=== PATIENT | female | born 1965 | race Caucasian/White ===

== ENCOUNTER 2022-08-12 06:04 | Day surgery (SDC) | payer BC ==
[2022-08-11 08:59] VITALS: BMI 34.2
[2022-08-11 11:26] LABS: Hemoglobin 13.8 g/dL (12.0-15.5); Mean Corpuscular HGB CONC 32.8 g/dL (32.0-36.0); Mean Corpuscular Hemoglobin 27.8 pg (27.0-33.0); Mean Corpuscular Volume 84.9 fl (81.6-98.3); Platelet Count 229 10x3/uL (150-450); RBC Distribution Width 12.6 % (11.5-14.5); Red Blood Cell (RBC) Count 4.96 10x6/uL (3.90-5.03); White Blood Cell (WBC) Count 6.5 10x3/uL (3.5-10.5)
[2022-08-12] MEDS ORDERED: Gabapentin 300 MG CAP ONE (06:15)
[2022-08-12] MEDS ORDERED: CeleCOXIB 100 MG CAP ONE (06:16)
[2022-08-12] MEDS ORDERED: Famotidine/PF 20 mg/2ml Vial ONE (06:16)
[2022-08-12] MEDS ORDERED: Lidocaine 1% w/Epinephrine 1:200K 30 ML VIAL ONE (06:54)
[2022-08-12] MEDS ORDERED: Midazolam HCl 2 mg/2 ml Vial ONE (07:11)
[2022-08-12] MEDS ORDERED: Fentanyl 100 MCG/2 ML VIAL ONE (07:36)
[2022-08-12] MEDS ORDERED: Dexamethasone 4 mg/ml Vial ONE (07:39)
[2022-08-12] MEDS ORDERED: Rocuronium Bromide 10 MG/ML (10ML VIAL) ONE (07:39)
[2022-08-12] MEDS ORDERED: Lidocaine 1% PF 5 ML VIAL ONE (07:39)
[2022-08-12] MEDS ORDERED: Glycopyrrolate 0.2 MG/ML 5 ML SYRINGE ONE (07:39)
[2022-08-12] MEDS ORDERED: Hydrocortisone Sod Succ/PF 100 mg/2 ml Vial ONE (07:40)
[2022-08-12] MEDS ORDERED: Ondansetron PF 4 MG/2 ML Vial ONE (07:40)
[2022-08-12] MEDS ORDERED: EPINEPHrine 1 MG/ML AMP ONE (07:40)
[2022-08-12] MEDS ORDERED: Dexamethasone 20 MG/5 ML VIAL ONE (07:40)
[2022-08-12 07:47] LABS: SARS-CoV-2 NAA Rapid Test Not Detected (NotDetected)
[2022-08-12] MEDS ORDERED: CEFAZOLIN 2 GM VIAL ONE (07:50)
[2022-08-12] MEDS ORDERED: PROPOFOL 40 ML ONE (07:56)
[2022-08-12] MEDS ORDERED: traMADol HCl 50 MG TAB PO PRN ×2 (09:04)
[2022-08-12] MEDS ORDERED: Ondansetron PF 4 MG/2 ML Vial IVP PRN (09:04)
[2022-08-12] MEDS ORDERED: Zolpidem Tartrate 5 MG TAB PO PRN (09:04)
[2022-08-12] MEDS ORDERED: Simethicone Chewable 80 MG TAB PO PRN (09:04)
[2022-08-12] MEDS ORDERED: Promethazine HCl 25 MG/ML VIAL IM PRN (09:04)
[2022-08-12] MEDS ORDERED: diphenhydrAMINE 25 MG CAP PO PRN (09:04)
[2022-08-12] MEDS ORDERED: Fentanyl 100 MCG/2 ML VIAL SLOW IVP PRN (09:04)
[2022-08-12] MEDS ORDERED: HYDROcodone/Acetaminophen 5/325 mg Tablet PO PRN ×2 (09:04)
[2022-08-12] MEDS ORDERED: Bisacodyl 10 MG SUPP PR PRN (09:04)
[2022-08-12] MEDS ORDERED: RISEDRONATE SODIUM 35 MG PO SCH (09:15)
[2022-08-12] MEDS ORDERED: HYDROmorphone 0.5 MG/0.5 ML SYRINGE ONE (09:40)
[2022-08-12] MEDS: Sodium Chloride 0.9% 1,000 ML IV SCH (11:44)
[2022-08-12] MEDS: Ketorolac Tromethamine 30 MG/ML VIAL IVP SCH ×2 (12:08→18:12)
[2022-08-12] MEDS: Trospium 20 MG TAB PO SCH (21:06)
[2022-08-12] MEDS: Docusate 100 MG CAP PO SCH (21:06)
[2022-08-13] MEDS: Ketorolac Tromethamine 30 MG/ML VIAL IVP SCH ×3 (00:34→13:58)
[2022-08-13] MEDS: Sodium Chloride 0.9% 1,000 ML IV SCH ×2 (00:41→10:40)
[2022-08-13 04:34] LABS: Mean Corpuscular HGB CONC 33.1 g/dL (32.0-36.0); Mean Corpuscular Hemoglobin 28.4 pg (27.0-33.0); Mean Platelet Volume 11.2 fl (7.4-10.4); Platelet Count 184 10x3/uL (150-450); RBC Distribution Width 12.8 % (11.5-14.5); Red Blood Cell (RBC) Count 4.22 10x6/uL (3.90-5.03)
[2022-08-13] MEDS ORDERED: Calcium Carbonate 600 MG + Vit D TAB PO SCH (09:00)
[2022-08-13] MEDS ORDERED: Anastrozole 1 MG TAB PO SCH (09:00)
[2022-08-13] MEDS: Docusate 100 MG CAP PO SCH (09:03)
[2022-08-13] MEDS: Trospium 20 MG TAB PO SCH (09:03)
[2022-08-13 12:41] VITALS: BP 144/78; TEMP 98.1
[2022-08-17] MEDS ORDERED: Ibuprofen 800 MG TAB PO SCH (22:00)
== END 2022-08-13 15:00 | disposition home or self-care (01) ==
LOC: CSHSDC 06:04 → UNDOADMIN 11:12 → CSHPP 11:12 → CSHSDC 08-13 15:00 → UNDODISIN 08-13 15:00
PROVIDERS: ATTEND Obstetrics & Gynecology
PROC: 0JQC0ZZ Repair Pelvic Region Subcutaneous Tissue and Fascia, Open Approach (ICD-10-PCS; principal; 2022-08-12)
DX: N81.10 Cystocele, unspecified (principal); N81.6 Rectocele; Z20.822 Contact with and (suspected) exposure to COVID-19; Z90.722 Acquired absence of ovaries, bilateral; Z90.710 Acquired absence of both cervix and uterus; Z79.899 Other long term (current) drug therapy; M81.0 Age-related osteoporosis without current pathological fracture
CPT/HCPCS: 36415; 85027; 86850; 86900; 86901; J0171; J1100; J1170; J1720; J1885; J2250; J2405; J2704; J3010; J7050; S0028; U0002